=== PATIENT | female | born 1945 | race Caucasian/White ===

== ENCOUNTER 2018-07-27 06:14 | Day surgery (SDC) | payer MEDICARE, OTHER ==
[2018-07-27] MEDS ORDERED: SOD CHLORIDE 0.9% 1,000 ML IV (06:50)
[2018-07-27] MEDS: CYCLOPENTOLATE/PHENYLEPH 2 ML OPH OPER (07:08)
[2018-07-27] MEDS: TROPICAMIDE 1% 3 ML OPH OPER (07:09)
[2018-07-27] MEDS: MOXIFLOXACIN 0.5% 3 ML OPH OPER (07:09)
[2018-07-27] MEDS: DICLOFENAC 0.1% 2.5 ML OPH OPER (07:10)
[2018-07-27] MEDS ORDERED: CARBACHOL 0.01% 1.5 ML OPH INJ (08:20)
[2018-07-27] MEDS ORDERED: CEFAZOLIN 1 GM INJ (08:20)
[2018-07-27] MEDS ORDERED: BUPIVACAINE 0.25% (MPF) 30 ML INJ (08:20)
[2018-07-27] MEDS ORDERED: LIDOCAINE 1% (MPF) 10 ML INJ ×2 (08:21→08:46)
[2018-07-27] MEDS ORDERED: BUPIVACAINE 0.75% (MPF) 10 ML INJ (08:46)
[2018-07-27] MEDS ORDERED: MOXIFLOXACIN 0.5% 3 ML OPH OPER (09:00)
[2018-07-27] MEDS ORDERED: TROPICAMIDE 1% 15 ML OPH OPER (09:00)
[2018-07-27] MEDS ORDERED: DICLOFENAC 0.1% 2.5 ML OPH OPER (09:00)
[2018-07-27] MEDS ORDERED: TROPICAMIDE 1% 3 ML OPH OPER (09:00)
[2018-07-27] MEDS: TETRACAINE 0.5% 4 ML OPH (11:17)
[2018-07-27] MEDS: DEXAMETHASONE 4 MG/ML 1 ML INJ (11:18)
[2018-07-27] MEDS: LIDOCAINE 2% (MDV) 20 ML INJ INJ (11:18)
[2018-07-27] MEDS: BUPIVACAINE 0.75% (MPF) 10 ML INJ INJ (11:19)
== END 2018-07-27 10:30 | disposition home or self-care (01) ==
LOC: SDS 06:14
DX: H25.12 Age-related nuclear cataract, left eye (principal); I10 Essential (primary) hypertension; E11.9 Type 2 diabetes mellitus without complications
CPT/HCPCS: 66984; 82962